=== PATIENT | female | born 2000 | race African-American/Black ===

== ENCOUNTER → 2024-04-07 | Outpatient (CLI) | payer OTHER | LOC: M PLAIMG 08:00 | PROVIDERS: ATTEND Nurse Practitioner Family | DX: R10.2 Pelvic and perineal pain (principal); D25.2 Subserosal leiomyoma of uterus ==

== ENCOUNTER 2024-04-27 10:33 | Emergency (ER) | payer OTHER ==
[~2024-04-27] VITALS: Ht 177.8 cm; Wt 88.3 kg
[2024-04-27 10:36] VITALS: BP 122/74; TEMP 98.1; O2SAT 100
[2024-04-27] MEDS ORDERED: SULF10EM7 (10:45)
[2024-04-27] MEDS ORDERED: CLIN1LOT (10:45)
[2024-04-27] MEDS ORDERED: HYDR-3363 (10:45)
[2024-04-27] MEDS ORDERED: FLUO-290 (10:45)
[2024-04-27] MEDS: FAMOTIDINE 20 MG TAB PO ONE (14:48)
[2024-04-27] MEDS: predniSONE 20 MG TAB PO ONE (14:48)
[2024-04-27] MEDS: AUGMENTIN 875 MG TAB PO ONE (14:48)
[2024-04-27] MEDS ORDERED: AMOX875T2 PO (14:49)
[2024-04-27] MEDS ORDERED: PEPC1TAB5 PO (14:49)
[2024-04-27] MEDS ORDERED: PRED20TA PO (14:49)
== END 2024-04-27 14:58 | disposition home or self-care (01) ==
LOC: M ED 10:33
DX: H01.001 Unspecified blepharitis right upper eyelid (principal); F41.9 Anxiety disorder, unspecified; F32.A Depression, unspecified; Z79.2 Long term (current) use of antibiotics; Z79.52 Long term (current) use of systemic steroids; Z79.899 Other long term (current) drug therapy
CPT/HCPCS: 99283; J7512